=== PATIENT | female | born 1940 | race African-American/Black ===

== ENCOUNTER 2017-01-05 09:35 | Emergency (ER) | payer OTHER ==
[~2017-01-05] VITALS: Ht 165.1 cm; Wt 80.0 kg
[~2017-01-05 09:35] MED LIST: ALLOPURINOL; FAMOTIDINE; LASIX
[2017-01-05 10:06] LABS: BASOPHILS % 1.4 % (0.0-2.0); EOSINOPHILS % 1.2 % (0.0-5.0); HEMATOCRIT. 37.5 % (36.0-48.0); HEMOGLOBIN. 12.4 g/dL (12.0-16.0); LYMPHOCYTES % 38.6 % (20.0-50.0); MEAN CORPUSCULAR HEMOGLOBIN 29.8 pg (28.0-32.0); MEAN PLATELET VOLUME 8.8 fl (7.4-10.4); MONOCYTES % 6.3 % (2.0-8.0); NEUTROPHILS % 52.5 % (40.0-76.0); PLATELET 169 x1000/uL (130-400); RED BLOOD CELL COUNT 4.17 mill/uL (4.2-5.4); RED CELL DISTRIBUTION WIDTH 15.2 % (11.6-14.6)
[2017-01-05 10:16] LABS: INR 1.1; PARTIAL THROMBOPLASTIN TIME 28.9 sec (24.0-34.0); PROTHROMBIN TIME 11.3 sec
[2017-01-05 10:18] LABS: CHLORIDE 102 mEq/L (98-107)
[2017-01-05 10:31] LABS: CARBON DIOXIDE 33 mEq/L (21-32); TROPONIN I 0.02 ng/mL (0.00-0.04)
[2017-01-05] MEDS ORDERED: SODIUM CHLORIDE 0.9% 500 ML IV ONE (11:24)
[2017-01-05 12:33] VITALS: BP 186/76
== END 2017-01-05 13:12 | disposition short-term general hospital (02) ==
LOC: ER 09:41
DX: G92 Toxic encephalopathy (principal); E86.0 Dehydration; R53.1 Weakness; F03.90 Unspecified dementia, unspecified severity, without behavioral disturbance, psychotic disturbance, mood disturbance, and anxiety; R10.9 Unspecified abdominal pain; I10 Essential (primary) hypertension; R32 Unspecified urinary incontinence; F10.10 Alcohol abuse, uncomplicated; Y90.9 Presence of alcohol in blood, level not specified
CPT/HCPCS: 36415; 70450; 71010; 80053; 83690; 83880; 84484; 85025; 85610; 85730; 93005; 99285; J7030; J7040; 96360

== ENCOUNTER 2017-01-28 09:33 | Emergency (ER) | payer OTHER ==
[~2017-01-28] VITALS: Ht 160 cm; Wt 64.0 kg
[2017-01-28] MEDS ORDERED: MORPHINE SULFATE 2 MG/ML CPJ (NOT FOR IM USE) IV ONE (10:30)
[2017-01-28 11:17] LABS: EOSINOPHILS % 1.4 % (0.0-5.0); HEMATOCRIT. 38.5 % (36.0-48.0); HEMOGLOBIN. 12.7 g/dL (12.0-16.0); LYMPHOCYTES % 37.6 % (20.0-50.0); MEAN CORPUSCULAR HEMOGLOBIN 29.9 pg (28.0-32.0); MEAN CORPUSCULAR VOLUME 90.6 fL (81.0-99.0); MONOCYTES % 6.1 % (2.0-8.0); NEUTROPHILS % 53.9 % (40.0-76.0); PLATELET 175 x1000/uL (130-400); RED BLOOD CELL COUNT 4.25 mill/uL (4.2-5.4); RED CELL DISTRIBUTION WIDTH 15.2 % (11.6-14.6)
[2017-01-28 11:21] LABS: INR 1.1; PROTHROMBIN TIME 11.4 sec
[2017-01-28 11:24] LABS: CARBON DIOXIDE 34 mEq/L (21-32); CHLORIDE 101 mEq/L (98-107)
[2017-01-28 11:31] LABS: CREATINE KINASE 405 IU/L (26-192); TROPONIN I 0.02 ng/mL (0.00-0.04)
[2017-01-28 11:34] LABS: AMMONIA 12 uMol/L (<32)
[2017-01-28] MEDS ORDERED: SODIUM CHLORIDE 0.9% 500 ML IV ONE (12:00)
[2017-01-28 12:54] LABS: T4 FREE 0.22 ng/dL (0.76-1.46)
[2017-01-28 14:11] VITALS: BP 173/78
== END 2017-01-28 14:41 | disposition short-term general hospital (02) ==
LOC: ER 09:47 → CANBEDREQ 16:17
DX: M25.551 Pain in right hip (principal); M54.2 Cervicalgia; M62.82 Rhabdomyolysis; G93.41 Metabolic encephalopathy; I10 Essential (primary) hypertension; E78.00 Pure hypercholesterolemia, unspecified; F03.90 Unspecified dementia, unspecified severity, without behavioral disturbance, psychotic disturbance, mood disturbance, and anxiety; E03.9 Hypothyroidism, unspecified; R79.89 Other specified abnormal findings of blood chemistry; W06.XXXA Fall from bed, initial encounter; Y93.89 Activity, other specified; Y92.013 Bedroom of single-family (private) house as the place of occurrence of the external cause
CPT/HCPCS: 36415; 70450; 71010; 72125; 73502; 80053; 82140; 82550; 83880; 84439; 84443; 84481; 84484; 85025; 85610; 93005; 96361; 96374; 99285; J2270; J7040